=== PATIENT | female | born 1965 | race Asian ===

== ENCOUNTER 2017-10-16 05:44 | Emergency (ER) | payer BC, OTHER ==
[~2017-10-16] VITALS: Ht 157.5 cm; Wt 66.2 kg
[2017-10-16 05:54] VITALS: BP 121/45
[2017-10-16] MEDS ORDERED: BACITRACIN TOP OINT 1 UD PKG TOP ONE (06:30)
[2017-10-16] MEDS ORDERED: ACETAMINOPHEN 500 MG TAB PO ONE (06:45)
== END 2017-10-16 07:19 | disposition home or self-care (01) ==
LOC: ER 05:45
DX: S01.81XA Laceration without foreign body of other part of head, initial encounter (principal); J45.909 Unspecified asthma, uncomplicated; W01.0XXA Fall on same level from slipping, tripping and stumbling without subsequent striking against object, initial encounter; Y93.89 Activity, other specified; Y99.0 Civilian activity done for income or pay; Y92.69 Other specified industrial and construction area as the place of occurrence of the external cause
CPT/HCPCS: 12011